=== PATIENT | female | born 1975 | race American Indian/Alaskan Native ===

== ENCOUNTER 2016-05-22 10:34 | Outpatient (CLI) | payer BC ==
--- NOTE | 2016-05-22 13:13 | Mammography Report ---
BILATERAL DIGITAL DIAGNOSTIC MAMMOGRAM with CAD and BILATERAL BREAST ULTRASOUND: 05/22/16 10:34:00 CLINICAL: Bilateral breast lumps. COMPARISON:None. These are baseline studies. FINDINGS: The breasts are heterogeneously dense, which may obscure small masses and limit the sensitivity of mammography. A right upper asymmetry the partially circumscribed margin persists with spot compression.No architectural distortion or suspicious calcifications. No mammographic findings are identified at bilateral inferior palpable markers. Ultrasound of the right breast (including all four quadrants and the retroareolar area) was performed. A benign cyst at 9 o'clock 5 cm from the nipple measures 1.0 x 1.0 x 0.6 mm and correlates with the mammographic density. Otherwise normal fibroglandular and fatty structures in the right breast. No ultrasound finding at the inferior palpable marker. Ultrasound of the left breast (including all four quadrants and the retroareolar area) was performed and demonstrated normal fibroglandular and fatty structures. No mass, cyst or shadowing and no abnormality at the inferior palpable marker. IMPRESSION: Right benign cyst at 9 o'clock and negative left breast. BI-RADS CATEGORY: 2 - - Benign RECOMMENDATION: Clinical followup and routine mammographic screening. ACR BI-RADS MAMMOGRAPHIC CODES: 0 = Needs additional imaging evaluation; 1 = Negative; 2 = Benign; 3 = Probably benign; 4 = Suspicious; 5 = Malignant; 6 = Known biopsy-proven malignancy COMMENT: 1. Dense breast tissue, i.e., adenosis, fibrocystic changes, etc., may obscure an underlying neoplasm. 2. Approximately 10% of cancers are not detected with mammography. 3. A negative mammography report should not delay biopsy if a clinically suspicious mass is present. COMMENT: Patient follow-up letters are generated by our [employer] application.
== END 2016-05-22 10:35 | disposition home or self-care (01) ==
LOC: SPVWC 10:34
PROVIDERS: ATTEND Obstetrics & Gynecology
DX: N60.01 Solitary cyst of right breast (principal); N63 Unspecified lump in breast
CPT/HCPCS: 76641; G0204; 77066

== ENCOUNTER 2018-07-21 09:45 | Outpatient (CLI) | payer BC ==
--- NOTE | 2018-07-21 10:32 | Mammography Report ---
LEFT DIGITAL DIAGNOSTIC MAMMOGRAM : 07/21/18 09:45:00 CLINICAL: Recalled for asymmetry. COMPARISON:06/26/18 screening FINDINGS: A spot compression MLO view demonstrates satisfactory effacement of the previously described asymmetry. IMPRESSION: Negative Mammogram. BI-RADS CATEGORY: 1 -- Negative RECOMMENDATION: Routine mammographic screening in one year. ACR BI-RADS MAMMOGRAPHIC CODES: 0 = Needs additional imaging evaluation; 1 = Negative; 2 = Benign; 3 = Probably benign; 4 = Suspicious; 5 = Malignant; 6 = Known biopsy-proven malignancy COMMENT: 1. Dense breast tissue, i.e., adenosis, fibrocystic changes, etc., may obscure an underlying neoplasm. 2. Approximately 10% of cancers are not detected with mammography. 3. A negative mammography report should not delay biopsy if a clinically suspicious mass is present. COMMENT: Patient follow-up letters are generated via our [employer] application.
== END 2018-07-21 09:46 | disposition home or self-care (01) ==
LOC: SPVWC 09:45
PROVIDERS: ATTEND Obstetrics & Gynecology
DX: R92.8 Other abnormal and inconclusive findings on diagnostic imaging of breast (principal)